=== PATIENT | female | born 1955 | race Asian ===

== ENCOUNTER 2022-01-20 18:29 | Inpatient (IN) | payer MEDICARE ==
[~2022-01-20] VITALS: Ht 157.5 cm; Wt 81.6 kg
[2022-01-20 20:25] VITALS: BP 139/80
[2022-01-20] MEDS ORDERED: DEXTROSE 5%/0.9% SOD CHL 1,000 ML IV SCH (21:15)
[2022-01-20] MEDS ORDERED: MELATONIN 5 MG TABLET PO PRN (21:15)
[2022-01-20] MEDS ORDERED: ONDANSETRON HCL INJ 2MG/ML 2ML 2 MG/ML VIAL IV PRN (21:15)
[2022-01-20] MEDS ORDERED: ACETAMINOPHEN 325 MG TAB PO PRN (21:15)
[2022-01-20] MEDS ORDERED: HYDRALAZINE HCL 20 MG/ML VIAL IV PRN (21:15)
[2022-01-20] MEDS ORDERED: DEXTROSE 50% SYRINGE 50 ML IV PRN (21:15)
[2022-01-20] MEDS ORDERED: SIMETHICONE 80 MG CHEW PO PRN (21:15)
[2022-01-20] MEDS ORDERED: DOCUSATE SODIUM 100 MG CAP PO PRN (21:15)
[2022-01-20] MEDS ORDERED: LIDOCAINE 4% PATCH TP PRN (21:15)
[2022-01-20] MEDS ORDERED: ALBUTEROL/IPRATROPIUM 3 ML NEB NEB PRN (21:15)
[2022-01-20] MEDS ORDERED: DIPHENHYDRAMINE HCL 25 MG CAP PO PRN (21:15)
[2022-01-20 21:30] VITALS: BP 139/80
[2022-01-20] MEDS: BENZONATATE 100 MG CAP PO PRN (22:30)
[2022-01-20 22:38] LABS: BASOPHILS % 0.1 % (0.0-1.0); HEMATOCRIT 41.7 % (34.2-44.1); LYMPHOCYTES # (AUTO) 1.4 (1.0-3.2); LYMPHOCYTES % 12.7 % (18.0-39.1); MEAN CORPUSCULAR HGB CONC 33.6 g/dL (31-35); MEAN CORPUSCULAR VOLUME 92.5 fL (81-99); MONOCYTES # (AUTO) 0.3 (0.2-0.8); MONOCYTES % 2.9 % (4.4-11.3); NEUTROPHILS # (AUTO) 9.2 (2.1-6.9); NEUTROPHILS % 83.8 % (38.7-80.0); PLATELET COUNT 295 x10e3/uL (140-360); RED BLOOD COUNT 4.51 x10e6/uL (3.6-5.1); RED CELL DISTRIBUTION WIDTH 12.6 % (11.7-14.4)
[2022-01-20] MEDS: TRAMADOL HCL 50 MG TAB PO PRN (22:52)
[2022-01-20 22:57] LABS: ALBUMIN 2.6 g/dL (3.5-5.0); ALBUMIN/GLOBULIN RATIO 0.5 (0.8-2.0); ANION GAP 19.7 mmol/L (8-16); CALCIUM 7.8 mg/dL (8.4-10.2); CREATININE, SERUM 0.79 mg/dL (0.57-1.11); POTASSIUM 3.7 mmol/L (3.5-5.1)
[2022-01-20] MEDS ORDERED: METOCLOPRAMIDE HCL 10 MG/2ML VIAL IV SCH (23:45)
[2022-01-20] MEDS ORDERED: IOPAMIDOL 370 MG/ML 100 ML INFUS..BTL INJ ONE (23:53)
[2022-01-21] VITALS (9 sets, daily range): BP systolic 116–139; BP diastolic 61–81
[2022-01-21] MEDS: DEXAMETHASONE 4 MG TAB PO SCH ×2 (00:39→09:11)
[2022-01-21] MEDS: BENZONATATE 100 MG CAP PO PRN ×2 (05:43→21:12)
[2022-01-21] MEDS: METOCLOPRAMIDE HCL 10 MG/2ML VIAL IV SCH ×3 (05:43→17:32)
[2022-01-21 06:55] LABS: ALBUMIN 2.4 g/dL (3.5-5.0); ALBUMIN/GLOBULIN RATIO 0.5 (0.8-2.0); ANION GAP 16.7 mmol/L (8-16); CALCIUM 7.7 mg/dL (8.4-10.2); CHOL/HDL RATIO 5.3 (3.0-3.6); CREATININE, SERUM 0.82 mg/dL (0.57-1.11); PHOSPHORUS 2.3 MG/DL (2.3-4.7); POTASSIUM 3.7 mmol/L (3.5-5.1)
[2022-01-21 07:15] LABS: THYROID STIMULATING HORMONE 0.342 uIU/mL (0.350-4.940)
[2022-01-21] MEDS ORDERED: PANTOPRAZOLE SOD 40 MG TABEC PO SCH (07:30)
[2022-01-21] MEDS ORDERED: REMDESIVIR 100MG 200 MG in SODIUM CHLORIDE 0.9% 100 ML IV ONE (12:00)
[2022-01-21] MEDS ORDERED: ENOXAPARIN SOD INJ 40 MG/0.4 ML SYR SC SCH (17:00)
[2022-01-21] MEDS: ENOXAPARIN SOD INJ 40 MG/0.4 ML SYR SC SCH (17:28)
[2022-01-21] MEDS: INSULIN GLARGINE 100 UNITS/ML VIAL SQ SCH (21:30)
[2022-01-22] VITALS (8 sets, daily range): BP systolic 112–142; BP diastolic 64–82
[2022-01-22] MEDS: METOCLOPRAMIDE HCL 10 MG/2ML VIAL IV SCH ×4 (00:45→18:26)
[2022-01-22 06:21] LABS: BASOPHILS % 0.1 % (0.0-1.0); HEMATOCRIT 37.2 % (34.2-44.1); HEMOGLOBIN 12.8 g/dL (12.0-16.0); LYMPHOCYTES # (AUTO) 0.9 (1.0-3.2); LYMPHOCYTES % 11.8 % (18.0-39.1); MEAN CORPUSCULAR HEMOGLOBIN 30.5 pg (28-32); MEAN CORPUSCULAR HGB CONC 34.4 g/dL (31-35); MEAN CORPUSCULAR VOLUME 88.6 fL (81-99); MONOCYTES # (AUTO) 0.4 (0.2-0.8); NEUTROPHILS # (AUTO) 6.1 (2.1-6.9); NEUTROPHILS % 82.6 % (38.7-80.0); PLATELET COUNT 345 x10e3/uL (140-360); RED CELL DISTRIBUTION WIDTH 12.6 % (11.7-14.4)
[2022-01-22 06:47] LABS: ANION GAP 16.3 mmol/L (8-16); CALCIUM 7.8 mg/dL (8.4-10.2); CREATININE, SERUM 0.79 mg/dL (0.57-1.11); POTASSIUM 3.3 mmol/L (3.5-5.1)
[2022-01-22] MEDS: DEXAMETHASONE 4 MG TAB PO SCH (09:14)
[2022-01-22] MEDS: TRAMADOL HCL 50 MG TAB PO PRN ×2 (09:58→10:51)
[2022-01-22] MEDS: ALBUTEROL SULFATE HFA 8GM INHALATION AEROSOL INH SCH ×2 (12:56→20:05)
[2022-01-22] MEDS: IPRATROPIUM/ALBUTEROL SULFATE 4 GM INH INH SCH ×2 (13:00→20:05)
[2022-01-22] MEDS ORDERED: REMDESIVIR 100MG 100 MG in SODIUM CHLORIDE 0.9% 100 ML IV SCH (14:00)
[2022-01-22] MEDS: BENZONATATE 100 MG CAP PO SCH ×2 (15:56→18:25)
[2022-01-22] MEDS ORDERED: DEXTROSE 50% SYRINGE 50 ML IV PRN (16:30)
[2022-01-22] MEDS: ENOXAPARIN SOD INJ 40 MG/0.4 ML SYR SC SCH (16:45)
[2022-01-22] MEDS: INSULIN LISPRO 100 UNIT/1 ML 3ML VIAL SQ SCH ×2 (16:48→21:30)
[2022-01-22] MEDS: INSULIN GLARGINE 100 UNITS/ML VIAL SQ SCH (21:30)
[2022-01-23] VITALS (8 sets, daily range): BP systolic 117–146; BP diastolic 73–93
[2022-01-23] MEDS: BENZONATATE 100 MG CAP PO SCH ×4 (00:50→17:42)
[2022-01-23] MEDS: METOCLOPRAMIDE HCL 10 MG/2ML VIAL IV SCH ×4 (00:50→18:06)
[2022-01-23] MEDS: IPRATROPIUM/ALBUTEROL SULFATE 4 GM INH INH SCH ×4 (01:45→20:00)
[2022-01-23] MEDS: ALBUTEROL SULFATE HFA 8GM INHALATION AEROSOL INH SCH ×4 (01:45→19:00)
[2022-01-23 02:57] LABS: ABG HCO3 25 mmol/L (22-26); ABG PCO2 34 mmHg (35-45); ABG PH 7.47 (7.35-7.45); ABG PO2 54 mmHg (80-105); ABG TCO2 26
[2022-01-23] MEDS: DEXAMETHASONE 4 MG TAB PO SCH (09:16)
[2022-01-23] MEDS: INSULIN LISPRO 100 UNIT/1 ML 3ML VIAL SQ SCH ×4 (09:24→21:00)
[2022-01-23] MEDS: BARICITINIB 2 MG TABLET PO SCH (14:56)
[2022-01-23] MEDS: ENOXAPARIN SOD INJ 40 MG/0.4 ML SYR SC SCH (17:42)
[2022-01-23] MEDS: INSULIN GLARGINE 100 UNITS/ML VIAL SQ SCH (21:30)
[2022-01-24] VITALS (8 sets, daily range): BP systolic 128–159; BP diastolic 74–95
[2022-01-24] MEDS: IPRATROPIUM/ALBUTEROL SULFATE 4 GM INH INH SCH ×4 (00:15→19:30)
[2022-01-24] MEDS: METOCLOPRAMIDE HCL 10 MG/2ML VIAL IV SCH ×4 (00:46→16:40)
[2022-01-24] MEDS: BENZONATATE 100 MG CAP PO SCH ×4 (00:46→16:40)
[2022-01-24] MEDS: ALBUTEROL SULFATE HFA 8GM INHALATION AEROSOL INH SCH ×4 (01:00→19:00)
[2022-01-24] MEDS: INSULIN LISPRO 100 UNIT/1 ML 3ML VIAL SQ SCH ×4 (07:30→21:30)
[2022-01-24] MEDS: BARICITINIB 2 MG TABLET PO SCH (08:46)
[2022-01-24] MEDS: DEXAMETHASONE 4 MG TAB PO SCH (08:46)
[2022-01-24] MEDS: ENOXAPARIN SOD INJ 40 MG/0.4 ML SYR SC SCH (16:54)
[2022-01-24] MEDS: INSULIN GLARGINE 100 UNITS/ML VIAL SQ SCH (21:30)
[2022-01-25] VITALS (8 sets, daily range): BP systolic 135–152; BP diastolic 66–76
[2022-01-25] MEDS: METOCLOPRAMIDE HCL 10 MG/2ML VIAL IV SCH ×4 (00:38→16:28)
[2022-01-25] MEDS: BENZONATATE 100 MG CAP PO SCH ×4 (00:38→16:29)
[2022-01-25] MEDS: IPRATROPIUM/ALBUTEROL SULFATE 4 GM INH INH SCH ×4 (00:40→19:20)
[2022-01-25] MEDS: ALBUTEROL SULFATE HFA 8GM INHALATION AEROSOL INH SCH ×4 (00:50→19:20)
[2022-01-25 05:30] LABS: EOSINOPHILS # (AUTO) 0.1 (0.0-0.4); EOSINOPHILS % 0.8 % (0.0-6.0); HEMATOCRIT 36.1 % (34.2-44.1); HEMOGLOBIN 12.3 g/dL (12.0-16.0); LYMPHOCYTES # (AUTO) 1.8 (1.0-3.2); LYMPHOCYTES % 26.9 % (18.0-39.1); MEAN CORPUSCULAR HEMOGLOBIN 30.4 pg (28-32); MEAN CORPUSCULAR HGB CONC 34.1 g/dL (31-35); MEAN CORPUSCULAR VOLUME 89.1 fL (81-99); MONOCYTES # (AUTO) 0.3 (0.2-0.8); MONOCYTES % 4.6 % (4.4-11.3); NEUTROPHILS # (AUTO) 4.4 (2.1-6.9); NEUTROPHILS % 67.1 % (38.7-80.0); PLATELET COUNT 346 x10e3/uL (140-360); RED BLOOD COUNT 4.05 x10e6/uL (3.6-5.1); RED CELL DISTRIBUTION WIDTH 12.4 % (11.7-14.4)
[2022-01-25 06:01] LABS: ALBUMIN 2.6 g/dL (3.5-5.0); ALBUMIN/GLOBULIN RATIO 0.8 (0.8-2.0); ANION GAP 12.2 mmol/L (8-16); CALCIUM 7.9 mg/dL (8.4-10.2); CREATININE, SERUM 0.77 mg/dL (0.57-1.11); POTASSIUM 3.2 mmol/L (3.5-5.1)
[2022-01-25] MEDS: POTASSIUM CHLORIDE 20 MEQ TAB CR PO PRN ×2 (06:30→13:10)
[2022-01-25] MEDS: INSULIN LISPRO 100 UNIT/1 ML 3ML VIAL SQ SCH ×4 (07:30→21:30)
[2022-01-25] MEDS: DEXAMETHASONE 4 MG TAB PO SCH (09:12)
[2022-01-25] MEDS: BARICITINIB 2 MG TABLET PO SCH (09:12)
[2022-01-25] MEDS: ENOXAPARIN SOD INJ 40 MG/0.4 ML SYR SC SCH (16:28)
[2022-01-25] MEDS: INSULIN GLARGINE 100 UNITS/ML VIAL SQ SCH (21:30)
[2022-01-26] VITALS (8 sets, daily range): BP systolic 118–153; BP diastolic 60–88
[2022-01-26] MEDS: IPRATROPIUM/ALBUTEROL SULFATE 4 GM INH INH SCH ×4 (00:30→19:30)
[2022-01-26] MEDS: ALBUTEROL SULFATE HFA 8GM INHALATION AEROSOL INH SCH ×4 (00:30→19:00)
[2022-01-26] MEDS: METOCLOPRAMIDE HCL 10 MG/2ML VIAL IV SCH ×4 (00:39→18:09)
[2022-01-26] MEDS: BENZONATATE 100 MG CAP PO SCH ×4 (00:39→18:09)
[2022-01-26] MEDS: TRAMADOL HCL 50 MG TAB PO PRN (04:28)
[2022-01-26] MEDS: INSULIN LISPRO 100 UNIT/1 ML 3ML VIAL SQ SCH ×4 (07:30→21:30)
[2022-01-26] MEDS: DEXAMETHASONE 4 MG TAB PO SCH (08:29)
[2022-01-26] MEDS: BARICITINIB 2 MG TABLET PO SCH (08:29)
[2022-01-26] MEDS: ENOXAPARIN SOD INJ 40 MG/0.4 ML SYR SC SCH (16:26)
[2022-01-26] MEDS: INSULIN GLARGINE 100 UNITS/ML VIAL SQ SCH (21:30)
[2022-01-27] MEDS: METOCLOPRAMIDE HCL 10 MG/2ML VIAL IV SCH ×5 (00:14→23:15)
[2022-01-27] MEDS: BENZONATATE 100 MG CAP PO SCH ×5 (00:15→23:17)
[2022-01-27] MEDS: IPRATROPIUM/ALBUTEROL SULFATE 4 GM INH INH SCH ×4 (00:15→19:05)
[2022-01-27] MEDS: ALBUTEROL SULFATE HFA 8GM INHALATION AEROSOL INH SCH ×2 (01:00→07:00)
[2022-01-27 01:43] VITALS: BP 140/76
[2022-01-27 04:52] VITALS: BP 152/83
[2022-01-27 08:55] VITALS: BP_SYST 101; BP_SYST 137; BP_DIAS 65; BP_DIAS 80
[2022-01-27] MEDS: INSULIN LISPRO 100 UNIT/1 ML 3ML VIAL SQ SCH ×4 (09:00→21:00)
[2022-01-27] MEDS: DEXAMETHASONE 4 MG TAB PO SCH (09:04)
[2022-01-27] MEDS: BARICITINIB 2 MG TABLET PO SCH (09:05)
[2022-01-27 12:26] VITALS: BP 148/80
[2022-01-27 16:31] VITALS: BP 132/85
[2022-01-27] MEDS: ENOXAPARIN SOD INJ 40 MG/0.4 ML SYR SC SCH (17:46)
[2022-01-27 19:38] VITALS: BP 146/79
[2022-01-27] MEDS: INSULIN GLARGINE 100 UNITS/ML VIAL SQ SCH (21:00)
[2022-01-28] VITALS (8 sets, daily range): BP systolic 119–153; BP diastolic 66–88
[2022-01-28] MEDS: IPRATROPIUM/ALBUTEROL SULFATE 4 GM INH INH SCH ×4 (01:00→19:58)
[2022-01-28] MEDS: METOCLOPRAMIDE HCL 10 MG/2ML VIAL IV SCH ×3 (05:57→16:55)
[2022-01-28] MEDS: BENZONATATE 100 MG CAP PO SCH ×3 (05:58→17:04)
[2022-01-28 06:41] LABS: BASOPHILS % 0.1 % (0.0-1.0); EOSINOPHILS % 0.4 % (0.0-6.0); HEMATOCRIT 42.4 % (34.2-44.1); HEMOGLOBIN 14.3 g/dL (12.0-16.0); LYMPHOCYTES # (AUTO) 1.9 (1.0-3.2); LYMPHOCYTES % 24.7 % (18.0-39.1); MEAN CORPUSCULAR HEMOGLOBIN 30.3 pg (28-32); MEAN CORPUSCULAR HGB CONC 33.7 g/dL (31-35); MEAN CORPUSCULAR VOLUME 89.8 fL (81-99); MONOCYTES # (AUTO) 0.5 (0.2-0.8); NEUTROPHILS # (AUTO) 5.3 (2.1-6.9); PLATELET COUNT 498 x10e3/uL (140-360); RED BLOOD COUNT 4.72 x10e6/uL (3.6-5.1); RED CELL DISTRIBUTION WIDTH 12.3 % (11.7-14.4)
[2022-01-28 07:12] LABS: ALBUMIN 3.1 g/dL (3.5-5.0); ALBUMIN/GLOBULIN RATIO 0.7 (0.8-2.0); ANION GAP 15.8 mmol/L (8-16); CALCIUM 8.2 mg/dL (8.4-10.2); CREATININE, SERUM 0.86 mg/dL (0.57-1.11); POTASSIUM 3.8 mmol/L (3.5-5.1)
[2022-01-28] MEDS: INSULIN LISPRO 100 UNIT/1 ML 3ML VIAL SQ SCH ×4 (07:30→21:00)
[2022-01-28] MEDS: BARICITINIB 2 MG TABLET PO SCH (08:31)
[2022-01-28] MEDS: DEXAMETHASONE 4 MG TAB PO SCH (08:32)
[2022-01-28] MEDS: ENOXAPARIN SOD INJ 40 MG/0.4 ML SYR SC SCH ×2 (16:43→18:05)
[2022-01-28] MEDS: INSULIN GLARGINE 100 UNITS/ML VIAL SQ SCH (21:00)
[2022-01-29] VITALS (7 sets, daily range): BP systolic 111–163; BP diastolic 68–86
[2022-01-29] MEDS: IPRATROPIUM/ALBUTEROL SULFATE 4 GM INH INH SCH ×4 (00:30→20:15)
[2022-01-29] MEDS: BENZONATATE 100 MG CAP PO SCH ×5 (05:57→23:34)
[2022-01-29] MEDS: METOCLOPRAMIDE HCL 10 MG/2ML VIAL IV SCH ×5 (05:57→23:34)
[2022-01-29] MEDS: INSULIN LISPRO 100 UNIT/1 ML 3ML VIAL SQ SCH ×5 (07:30→21:00)
[2022-01-29] MEDS: BARICITINIB 2 MG TABLET PO SCH (09:22)
[2022-01-29] MEDS: DEXAMETHASONE 4 MG TAB PO SCH (09:23)
[2022-01-29] MEDS: ENOXAPARIN SOD INJ 40 MG/0.4 ML SYR SC SCH (17:46)
[2022-01-29] MEDS: INSULIN GLARGINE 100 UNITS/ML VIAL SQ SCH (21:00)
[2022-01-30] MEDS: IPRATROPIUM/ALBUTEROL SULFATE 4 GM INH INH SCH ×3 (00:08→13:00)
[2022-01-30 04:00] VITALS: BP 142/69
[2022-01-30] MEDS: BENZONATATE 100 MG CAP PO SCH ×2 (05:19→12:01)
[2022-01-30] MEDS: METOCLOPRAMIDE HCL 10 MG/2ML VIAL IV SCH ×2 (05:19→12:01)
[2022-01-30 08:03] VITALS: BP 143/72
[2022-01-30 09:05] VITALS: BP 143/72
[2022-01-30] MEDS: BARICITINIB 2 MG TABLET PO SCH (10:12)
[2022-01-30 11:28] VITALS: BP 167/94
[2022-01-30] MEDS: INSULIN LISPRO 100 UNIT/1 ML 3ML VIAL SQ SCH ×2 (11:48→12:04)
[2022-01-30] MEDS ORDERED: ONDANSETRON HCL 4 MG ORAL DISINTEGRATING TAB PO PRN (15:00)
[2022-01-30] MEDS ORDERED: GLYBURIDE5 MG PO (15:11)
[2022-01-30] MEDS ORDERED: LEVOTHYROXINE75 MC1 PO (15:14)
[2022-01-30] MEDS ORDERED: METOCLOPRAMIDE HCL 10 MG TAB PO SCH (16:30)
[2022-01-30] MEDS ORDERED: PANTOPRAZOLE SOD 40 MG TABEC PO SCH (16:30)
== END 2022-01-30 15:35 | disposition home or self-care (01) | DRG 177 ==
LOC: MED/SURG2 18:29 → OBSVTOIN 01-21 16:13
PROVIDERS: ADMIT Internal Medicine; ATTEND Internal Medicine
PROC: 8E0ZXY6 Isolation (ICD-10-PCS; principal; 2022-01-21)
PROC: 5A0945A Assistance with Respiratory Ventilation, 24-96 Consecutive Hours, High Flow/Velocity Cannula (ICD-10-PCS; 2022-01-23)
DX: U07.1 COVID-19 (principal); J12.82 Pneumonia due to coronavirus disease 2019; J96.01 Acute respiratory failure with hypoxia; J15.9 Unspecified bacterial pneumonia; K21.9 Gastro-esophageal reflux disease without esophagitis; E11.9 Type 2 diabetes mellitus without complications; R00.1 Bradycardia, unspecified; E78.2 Mixed hyperlipidemia; Z87.891 Personal history of nicotine dependence; G47.00 Insomnia, unspecified; Z79.4 Long term (current) use of insulin
CPT/HCPCS: 36415; 36600; 71045; 71260; 74177; 80048; 80053; 80061; 82728; 82805; 82948; 83036; 83690; 83735; 84100; 84443; 84484; 85025; 85651; 86141; 87040; 87086; 93306; 94660; 94664; 94799; 96361; 96372; G0378; J0248; J0692; J1650; J1815; J2405; J2543; J2765; J7042; J7050; Q9967

== ENCOUNTER → 2022-02-27 | Outpatient (CLI) | payer MEDICARE ==
[~2022-02-27] MED LIST: GLYBURIDE5 MG PO; LEVOTHYROXINE75 MC1 PO
== END ==
LOC: RAD 10:03
PROVIDERS: ATTEND Internal Medicine Critical Care Medicine
DX: J12.9 Viral pneumonia, unspecified (principal)
CPT/HCPCS: 71046